=== PATIENT | female | born 1990 | race Caucasian/White ===

== ENCOUNTER 2016-11-30 18:28 | Day surgery (SDC) | payer OTHER, BC ==
[~2016-11-30] VITALS: Ht 165.1 cm; Wt 92.7 kg
--- NOTE | 2016-11-30 18:10 | NUR ---
[facility] Alert and ambulatory. Reports pain has decreased and rates it 5/10 at this time. Denies nausea. Voided upon arrival to the floor.
--- OUTSIDE RECORDS SUMMARY | 2016-11-30 18:18 | XMS REPORT ---
Author Jany Pettit Organization [employer] Address Unknown Phone Unavailable Care Team Providers Care [employer] Designer Name Role Phone Jany Dukes CP Unavailable Allergies, Adverse Reactions, Alerts Substance Reaction Event Type N.K.D.A. 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
[2016-11-30 18:23] VITALS: BP 117/69
[2016-11-30] MEDS ORDERED: LACTATED RINGERS 1,000 ML IV ONE ×3 (18:35→21:58)
[2016-11-30] MEDS ORDERED: SODIUM CHLORIDE FLUSH 3 ML SYR ONE (18:36)
[2016-11-30] MEDS ORDERED: BUPIVACAINE/EPINEPHRINE 0.5%-1:200,000 (MARCAINE) 30 ML VIAL INJ ONE (19:25)
[2016-11-30] MEDS ORDERED: CEFOXITIN 1 GM ONE (19:48)
[2016-11-30] MEDS ORDERED: SODIUM CHLORIDE VIAL (PF) 20 ML IV ONE (19:48)
--- NOTE | 2016-11-30 19:54 | NUR ---
OR staff in room to take pt to surgery.
[2016-11-30] MEDS ORDERED: CEFOXITIN IV ONE (19:55)
[2016-11-30] MEDS ORDERED: SODIUM CHLORIDE IV ONE (19:55)
[2016-11-30] MEDS ORDERED: ALFENTANIL 500 MCG/ML (ALFENTA) 5 ML AMP IV ONE (20:02)
[2016-11-30] MEDS ORDERED: MIDAZOLAM 2 MG/2 ML (VERSED) VIAL ONE (20:02)
[2016-11-30] MEDS ORDERED: PROPOFOL 20 ML IV ONE (20:03)
[2016-11-30] MEDS ORDERED: SUCCINYLCHOLINE 20 MG/ML 10 ML VIAL ONE (20:04)
[2016-11-30] MEDS ORDERED: ROCURONIUM 50 MG/5 ML (ZEMURON) VIAL IV ONE (20:30)
[2016-11-30] MEDS ORDERED: ONDANSETRON 2 MG/ML (Z0FRAN) 2 ML VIAL ONE (20:35)
[2016-11-30] MEDS ORDERED: diphenhydrAMINE 50 MG/ML INJ (BENADRYL) ONE (20:35)
[2016-11-30] MEDS ORDERED: NEOSTIGMINE 1 MG/ML SYRINGE ONE (21:01)
[2016-11-30] MEDS ORDERED: GLYCOPYRROLATE 0.2 MG/ML (ROBINUL) 1 ML VIAL ONE (21:01)
[2016-11-30] MEDS ORDERED: KETOROLAC 60 MG/2 ML (TORADOL) VIAL IM ONE (21:15)
--- NOTE | 2016-11-30 21:55 | NUR ---
Pt returns to 319 post-op. 3 incisions covered with dermabond, open to air. Denies pain. Water provided.
[2016-11-30] MEDS ORDERED: ONDANSETRON 4 MG (ZOFRAN) ORAL DISSOLVE TAB PO PRN (22:00)
[2016-11-30] MEDS ORDERED: KETOROLAC 30 MG/ML (TORADOL) 1 ML VIAL IV PRN (22:00)
[2016-11-30 22:01] VITALS: BP 104/44
[2016-11-30] MEDS: LACTATED RINGERS 1,000 ML IV SCH (22:02)
[2016-11-30 22:14] VITALS: BP 105/40
[2016-11-30 22:31] VITALS: BP 97/44
[2016-11-30 22:47] VITALS: BP 103/46
[2016-11-30 23:08] VITALS: BP 104/39
[2016-12-01] VITALS (7 sets, daily range): BP systolic 101–116; BP diastolic 48–69
[2016-12-01] MEDS ORDERED: ACETAMINOPHEN 325 MG TAB (TYLENOL) PO PRN (00:10)
--- NOTE | 2016-12-01 00:15 | NUR ---
Pt requests tylenol for "stiffness." Dr Fu notified and order received.
--- NOTE | 2016-12-01 06:04 | NUR ---
Pt rests in short intervals. 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 LR infusing per order. Resp even and non labored on RA.
--- NOTE | 2016-12-01 07:45 | NUR ---
Patient has voided well through the night. Incisions are clean, dry, and intact without redness.
[2016-12-01] MEDS: LACTATED RINGERS 1,000 ML IV SCH (07:58)
--- NOTE | 2016-12-01 08:40 | NUR ---
Patient took about 75% of a clear liquid tray without difficulty.
--- NOTE | 2016-12-01 09:30 | NUR ---
Patient reports adequate pain control from Tramadol. Ambulated a full lap in the underwood without difficulty.
--- NOTE | 2016-12-01 10:05 | NUR ---
Gave the patient discharge instructions and written script for Tramadol. Instructed patient to call Dr. Fu office to arrange follow up with a surgeon in [place]. Educated patient on signs and symptoms of infection. She demonstrated verbal understanding of the instructions.
--- NOTE | 2016-12-01 10:19 | NUR ---
Patient dismissed ambulatory accompanied by a JAVAS[employer] FRONT END DEVELOPER.
[2016-12-01] MEDS ORDERED: NS FLUSH 3 ML PRN IV (10:25)
[2016-12-01] MEDS ORDERED: NS FLUSH 10 ML PRN IV (10:25)
[2016-12-02] MEDS ORDERED: NS FLUSH 3 ML DAILY IV SCH (09:00)
== END 2016-12-01 10:19 | disposition home or self-care (01) ==
LOC: EDSTATUS 18:28 → ASC 18:28 → MED/SURG 18:29 → ASC 12-01 10:19
PROVIDERS: ATTEND Surgery
DX: K35.3 Acute appendicitis with localized peritonitis (principal); K21.9 Gastro-esophageal reflux disease without esophagitis
CPT/HCPCS: 44970; 81025; J0330; J0694; J1200; J1885; J2250; J2405; J2710; J3490; J7050; J7120